=== PATIENT | male | born 1945 | race Caucasian/White ===

== ENCOUNTER 2021-09-18 11:16 | Emergency (ER) | payer BC, OTHER ==
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
[2021-09-18] MEDS ORDERED: Sodium Chloride 0.9% 1,000 ML IV SCH (11:45)
--- NOTE | 2021-09-18 11:55 | CT ---
Head CT Technique: Multiple axial sections through the brain were obtained. Intravenous contrast was not utilized. Reconstructed coronal and sagittal images were obtained. Comparison: No prior intracranial imaging is available. Findings: Ventricles along with basal cisterns and sulci over the convexities are mildly prominent. No abnormal parenchymal densities are seen. No evidence of intracranial hemorrhage is seen. No midline shift or mass-effect is seen. Mild mucosal thickening is seen within the sphenoid sinus. Mucosal thickening is also noted within the maxillary sinuses and ethmoid sinuses. Air-fluid level is noted within the right maxillary sinus. Mastoid sinuses are clear. No acute calvarial abnormality is appreciated. Impression: 1. Mild generalized atrophy. 2. No acute intracranial abnormality is appreciated. 3. Sinus findings which are described above. Air-fluid level within the right maxillary sinus raises the possibility of acute sinusitis. 4. If patient's symptoms warrant further evaluation, MRI study could then be considered. Diagnostic code #3
--- NOTE | 2021-09-18 12:14 | CR ---
Chest: Portable view of the chest was obtained. Comparison: No prior chest imaging is available. Slightly lobulated left hemidiaphragm is seen with a small portion of the stomach beneath this lobulation. Lungs otherwise are clear. Heart size and mediastinum are normal. Bony structures showed nothing acute. Impression: 1. Incidental finding as noted above. 2. Nothing acute is seen on portable chest x-ray. Diagnostic code #2
[2021-09-18] MEDS ORDERED: FLU Vacc QS2021(65UP)/MF59C/PF 60 MCG/0.5 ML Syringe IM ONE (12:30)
--- NOTE | 2021-09-18 13:25 | MR ---
MRI brain Technique: T1 sagittal; T2, T2 gradient echo, T2 FLAIR, T1 and diffusion axial; and T1 weighted coronal images were obtained of the brain. Comparison: Prior head CT study performed earlier on the same day (11:34 AM). Findings: Ventricles along with basal cisterns and sulci over the convexities are mildly prominent. No abnormal signal is seen within the brain parenchyma. No midline shift or mass-effect is seen. Normal signal void is seen within the major cerebral arteries within the skull base. No acute diffusion abnormalities are seen. Mucosal thickening is seen within both maxillary sinuses, ethmoid and sphenoid sinuses. Mastoid sinuses are clear. Impression: 1. Paranasal sinus findings. Please correlate if patient has symptoms of acute sinusitis. 2. Mild generalized atrophy is seen. 3. No acute intracranial abnormality is seen on MRI study. Diagnostic code #3
--- NOTE | 2021-09-18 13:29 | MR ---
MR angiogram of brain Technique: MR angiogram study was obtained centered to the [place] and multiple MIP images were obtained. Comparison: No prior angiogram study of the brain is available. Findings: Two distal vertebral arteries and basilar artery are noted and patent. Both posterior cerebral arteries are patent. Internal carotid arteries are patent. Middle cerebral arteries are patent. Anterior cerebral arteries are patent. No aneurysm is appreciated. Impression: 1. No abnormality is identified on MR angiogram study of the brain. Diagnostic code #1
[2021-09-18] MEDS ORDERED: Iopamidol 755 Mg/ML 100 ML Bottle IVPUSH ONE (14:46)
[2021-09-18] MEDS ORDERED: Sodium Chloride 0.9% 10 ML Syringe FLUSH PRN (14:46)
[2021-09-18] MEDS ORDERED: Sodium Chloride 0.9% 100 ML IV SCH (15:00)
--- NOTE | 2021-09-18 15:48 | CT ---
CT angiogram of neck Technique: Multiple axial sections through the neck were obtained. Study was obtained without and with intravenous contrast. Multiple MIP images were then obtained. Comparison: No prior neck angiogram study is available. Findings: Both common carotid arteries are patent. There is mild irregularity being seen within the distal common carotid arteries and carotid bulb compatible with atherosclerotic change. Both carotid bulbs show evidence of atherosclerotic calcifications. No focal stenosis is seen within the carotid bulbs. Both internal carotid artery show minimal scattered areas of irregularity which is felt compatible with mild atheromatous disease. No focal stenosis is seen. Both vertebral arteries are patent. Normal patency of the basilar artery is seen. Incompletely seen scattered degenerative change noted within the cervical spine. Impression: 1. Mild atheromatous change without focal stenosis being seen within the common carotid arteries or internal carotid arteries. Vertebral arteries and basilar artery are also patent. Diagnostic code #3
== END 2021-09-18 17:50 | disposition home or self-care (01) ==
LOC: JD.ED 11:16
DX: H49.22 Sixth [abducent] nerve palsy, left eye (principal); I10 Essential (primary) hypertension; E78.00 Pure hypercholesterolemia, unspecified; E11.9 Type 2 diabetes mellitus without complications; E83.42 Hypomagnesemia; Z20.822 Contact with and (suspected) exposure to COVID-19; Z79.899 Other long term (current) drug therapy; Z79.84 Long term (current) use of oral hypoglycemic drugs
CPT/HCPCS: 36415; 70450; 70498; 70544; 70551; 71045; 80053; 82553; 82947; 83735; 83880; 84484; 85025; 85610; 85730; 86140; 87635; 90471; 90694; 93005; 99284; J7030; Q9967; G0008; U0002

== ENCOUNTER 2023-01-22 08:50 | Day surgery (SDC) | payer OTHER ==
[~2023-01-22 08:50] MED LIST: Lactated Ringers 1,000 ML IV SCH; Lidocaine 1%/Sod Bicarbonate in NS 8.4% 1 ML Syringe IDERM PRN; Sodium Chloride 0.9% 10 ML Syringe FLUSH PRN; Sodium Chloride 0.9% 10 ML Syringe FLUSH SCH
[2023-01-22] MEDS ORDERED: Propofol 200 MG/20 ML SDV ONE ×2 (10:24→11:19)
[2023-01-22] MEDS ORDERED: Lidocaine 1% 4 ML ONE (10:24)
[2023-01-22] MEDS ORDERED: ePHEDrine 50 MG/ML SDV ONE (11:02)
== END 2023-01-22 12:35 | disposition home or self-care (01) ==
LOC: JD.SDS 08:50
PROVIDERS: ATTEND Surgery
DX: D12.3 Benign neoplasm of transverse colon (principal); K29.50 Unspecified chronic gastritis without bleeding; K20.90 Esophagitis, unspecified without bleeding; K44.9 Diaphragmatic hernia without obstruction or gangrene; K25.9 Gastric ulcer, unspecified as acute or chronic, without hemorrhage or perforation; K29.80 Duodenitis without bleeding; K22.81 Esophageal polyp; K64.8 Other hemorrhoids; K22.89 Other specified disease of esophagus; E03.9 Hypothyroidism, unspecified; E78.5 Hyperlipidemia, unspecified; E11.42 Type 2 diabetes mellitus with diabetic polyneuropathy; Z79.84 Long term (current) use of oral hypoglycemic drugs; Z79.890 Hormone replacement therapy; Z86.010 Personal history of colon polyps
CPT/HCPCS: 36415; 43239; 45380; 80051; 82947; 85025; 88305; J2704; J7120; 00813; J3490

== ENCOUNTER 2024-04-14 08:07 | Day surgery (SDC) | payer OTHER ==
[~2024-04-14 08:07] MED LIST changes: -Lactated Ringers 1,000 ML IV SCH; -Lidocaine 1%/Sod Bicarbonate in NS 8.4% 1 ML Syringe IDERM PRN
[2024-04-14] MEDS: Lactated Ringers 1,000 ML IV SCH (08:20)
[2024-04-14] MEDS ORDERED: Propofol 200 MG/20 ML SDV ONE ×2 (08:53→10:06)
[2024-04-14] MEDS ORDERED: fentaNYL 100 MCG/2 ML SDV ONE (08:53)
[2024-04-14] MEDS ORDERED: ePHEDrine 50 MG/ML SDV ONE (10:15)
== END 2024-04-14 12:10 | disposition home or self-care (01) ==
LOC: JD.SDS 08:07
PROVIDERS: ATTEND Surgery
DX: Z12.11 Encounter for screening for malignant neoplasm of colon (principal); D12.3 Benign neoplasm of transverse colon; K26.9 Duodenal ulcer, unspecified as acute or chronic, without hemorrhage or perforation; K25.9 Gastric ulcer, unspecified as acute or chronic, without hemorrhage or perforation; K44.9 Diaphragmatic hernia without obstruction or gangrene; K63.5 Polyp of colon; K29.70 Gastritis, unspecified, without bleeding; K62.89 Other specified diseases of anus and rectum; E11.9 Type 2 diabetes mellitus without complications; E03.9 Hypothyroidism, unspecified; I10 Essential (primary) hypertension; E78.5 Hyperlipidemia, unspecified; Z86.010 Personal history of colon polyps; Z79.899 Other long term (current) drug therapy; Z79.82 Long term (current) use of aspirin; Z79.84 Long term (current) use of oral hypoglycemic drugs; Z79.890 Hormone replacement therapy
CPT/HCPCS: 43239; 45380; J2704; J3010; J7120; 00813; 88305; 99100; J3490

== ENCOUNTER 2025-05-06 10:12 | Emergency (ER) | payer OTHER ==
[2025-05-06 10:58] LABS: BASOPHILS ABSOLUTE AUTO 0.0 K/mm3 (0.0-0.2); BASOPHILS PERCENT AUTO 0.4 % (0.0-1.0); EOSINOPHILS ABSOLUTE AUTO 0.1 K/mm3 (0.0-0.4); EOSINOPHILS PERCENT AUTO 0.7 % (0.0-6.0); IMMATURE GRAN ABSOLUTE AUTO 0.03 K/mm3 (0.00-0.05); IMMATURE GRAN PERCENT AUTO 0.3 % (0.0-0.4); LYMPHOCYTES ABSOLUTE AUTO 1.9 K/mm3 (1.0-4.8); LYMPHOCYTES PERCENT AUTO 18.5 % (24.0-44.0); MEAN PLATELET VOLUME 10.2 fl (9.4-12.4); MONOCYTES ABSOLUTE AUTO 1.0 K/mm3 (0.0-0.8); MONOCYTES PERCENT AUTO 9.3 % (0.0-8.0); NEUTROPHILS ABSOLUTE AUTO 7.4 K/mm3 (1.8-7.7); NEUTROPHILS PERCENT AUTO 70.8 % (41.0-71.0); NRBC ABSOLUTE 0.00 (0.00-0.02); NRBC PERCENT 0.0 % (0.0-0.2); PLATELET COUNT,PLT 303 K/mm3 (150-400); RED BLOOD CELL COUNT 4.32 M/mm3 (4.52-5.90); WHITE BLOOD CELL COUNT,WBC 10.48 K/mm3 (3.9-11.3)
[2025-05-06 11:16] LABS: INR 0.97
[2025-05-06 11:36] LABS: A/G RATIO 1.3 (1-2); ALANINE AMINOTRANSFERASE,ALT 25.0 U/L (16-63); ASPARTATE AMNIOTRANSFERASE,AST 19.0 U/L (15-37); BILIRUBIN TOTAL 0.5 mg/dL (0.2-1.0); BLOOD UREA NITROGEN,BUN 25.0 mg/dL (7-18); CARBON DIOXIDE,CO2 29.0 mEq/L (21-32); CHLORIDE,CL 103.0 mEq/L (98-107); CREATINE KINASE,CK 81.0 U/L (39-308); CREATININE 1.2 mg/dL (0.7-1.3); EST CRCL DRUG DOSING (CG) 56.58 mL/min; ESTIMATED GFR 62.0 mL/min (>60); GLUCOSE RANDOM 119.0 mg/dL (70-99); POTASSIUM,K 4.9 mEq/L (3.5-5.1); PROTEIN TOTAL,TP 6.8 g/dl (6.4-8.2); SODIUM,NA 140.0 mEq/L (136-145)
[2025-05-06] MEDS: Gadobenate Dimeglumine 529 MG/ML 20 ML SDV IVPUSH ONE (11:36)
[2025-05-06] MEDS: Sodium Chloride 0.9% 10 ML Syringe FLUSH ONE (11:37)
[2025-05-08 14:41] LABS: AC RECEPTOR BINDNG AB 0.0 nmol/L (0.0-0.4)
== END 2025-05-06 13:56 | disposition home or self-care (01) ==
LOC: JD.ED 10:12
DX: H02.403 Unspecified ptosis of bilateral eyelids (principal); H53.8 Other visual disturbances; I10 Essential (primary) hypertension; E78.00 Pure hypercholesterolemia, unspecified; M19.90 Unspecified osteoarthritis, unspecified site; E11.9 Type 2 diabetes mellitus without complications; E03.9 Hypothyroidism, unspecified; Z79.82 Long term (current) use of aspirin; Z79.84 Long term (current) use of oral hypoglycemic drugs; Z79.890 Hormone replacement therapy; Z79.899 Other long term (current) drug therapy
CPT/HCPCS: 36415; 70543; 70544; 70553; 80053; 82550; 83735; 85025; 85610; 85652; 86041; 99284; A9577